=== PATIENT | female | born 1970 | race Caucasian/White ===

== ENCOUNTER 2017-03-26 14:20 | Emergency (ER) | payer SELFPAY ==
[2017-03-26 14:29] VITALS: O2SAT 96
--- NOTE | 2017-03-26 14:51 | CPEKG ---
Heart Rate: 91 RR Interval: 659 P-R Interval: 140 QRSD Interval: 82 QT Interval: 400 QTC Interval: 493 P [place]: 43 QRS [place]: 28 T Wave [place]: 34 EKG Severity - BORDERLINE ECG - EKG Impression: SINUS RHYTHM EKG Impression: BORDERLINE PROLONGED QT INTERVAL Electronically Signed By: Elise Smith 26-Mar-2017 15:22:39
--- NOTE | 2017-03-26 15:09 | EDPHY ---
H & P Stated Complaint: r side of face feels puffy and numb since 1230 Time Seen by Provider: 03/26/17 15:02 - Personal History LMP (Females 10-55): Over 28 Days Ago Current Tetanus/Diphtheria Vaccine: Unsure - Medical/Surgical History Hx Asthma: No Hx Chronic Respiratory Disease: No Hx Diabetes: No Hx Cardiac Disease: Yes Hx Renal Disease: No Hx Cirrhosis: No Hx Alcoholism: No Hx HIV/AIDS: No Hx Splenectomy or Spleen Trauma: No Other PMH: uterine ablation/states had MA - Social History Smoking Status: Current every day smoker Constitutional: Initial Vital Signs Temperature (C) 36.9 C 03/26/17 14:25 Heart Rate 107 H 03/26/17 14:25 Respiratory Rate 25 H 03/26/17 14:25 Blood Pressure 182/124 H 03/26/17 14:25 O2 Sat (%) 96 03/26/17 14:25 O2 Delivery Mode Room Air Allergies/Adverse Reactions: No Known Allergies Allergy (Unverified 03/26/17 14:24) Home Medications: Medication Instructions Recorded NK [No Known Home Meds] 03/26/17 Medical Decision Making ED Course/Re-evaluation: CHIEF COMPLAINT: Resolved shakiness, head pressure, difficulty hearing. HISTORY OF PRESENT ILLNESS: The patient is a 46 y/o female arriving with her friend complaining of a now-resolved episode of shakiness, head pressure, and difficulty hearing this afternoon. She initially noticed pressure on the right side of her head and muffled hearing, then developed general shakiness. She then blew her nose and "it popped and all went away." All her symptoms have resolved at this time and she feels completely normal. She denies any recent illness. She is otherwise healthy. REVIEW OF SYSTEMS: A 10 point review of systems was performed and is negative with the exception of the elements mentioned in the history of present illness. PHYSICAL EXAM: General Appearance: Alert, well hydrated, appropriate, and non-toxic appearing. Head: Atraumatic without scalp tenderness or obvious injury Eyes: Pupils equal, round, reactive to light and accommodation, EOMI, no trauma , no injection. Ears: Clear bilaterally, no perforation, normal landmarks Nose: Atraumatic, no rhinorrhea, clear. Throat: There is no erythema or exudates, no lesions, normal tonsils, mucus membranes moist. Neck: Supple, non-tender, no lymphadenopathy. Respiratory: No retractions, no distress, no wheezes, and no accessory muscle use. Lungs are clear to auscultation bilaterally. Cardiovascular: Regular rate and rhythm, no murmurs, rubs, or gallops. Good capillary refill all extremities. Gastrointestinal: Abdomen is soft, non-tender, non-distended, no masses, no rebound, no guarding, no peritoneal signs. Musculoskeletal: Normal active ROM of all extremities, atraumatic. Neurological: Alert, appropriate, and interactive. The patient has normal DTRs and non-focal cranial nerves, motor, sensory, and cerebellar exam. Skin: No rashes, good turgor, no nodules on palpation. PAST MEDICAL HISTORY: Denies PAST SURGICAL HISTORY: Denies SOCIAL HISTORY: Arrived from [place] 1 month ago. Friend at bedside. DIFFERENTIAL DIAGNOSIS: The differential diagnosis for the patient's headache included but was not limited to subarachnoid hemorrhage, migraine headache, tension headache and infectious causes such as meningitis, pharyngitis and sinusitis. MEDICAL DECISION MAKING: This is a normally healthy 46 y/o female presenting for evaluation after a resolved right-sided headache with associated muffled hearing. Her symptoms completely resolved after she blew her nose. Her neuro exam is completely normal. Her presentation is consisted with a blocked auditory tube that she cleared when she blew her nose. We discussed risks and benefits of brain imaging and mutually decided she does not warrant further work up or imaging at this time as her symptoms improved 100% after blowing her nose. She is comfortable being discharged home. I've recommended follow up with ENT if symptoms recur and given strict return precautions should she experience any neuro deficits or severe headache. She agrees with plan. Departure - Departure Disposition: Home, Routine, Self-Care Clinical Impression: resolved Blocked eustachian tube Qualifiers: Laterality: right Qualified Code(s): H68.101 - Unspecified obstruction of Eustachian tube, right ear Condition: Good Instructions: General Headache (ED) Additional Instructions: Follow up with an ENT if you find symptoms recur frequently. You've been referred to Dr. Stone. Return to the ED for severe headache, weakness or numbness on one side of your body, or other worsening of condition. Referrals: Jania Stone MD [Medical Doctor] - As per Instructions Report Scribed for: Lele Mishra Report Scribed by: Ronit Stovall Date of Report: 03/26/17 Time of Report: 15:32
[2017-03-26 15:24] VITALS: BP 169/120; PULSE 78; RESP 14; TEMP 99
== END 2017-03-26 15:38 | disposition home or self-care (01) ==
DX: H68.101 Unspecified obstruction of Eustachian tube, right ear (principal); I25.2 Old myocardial infarction; F17.200 Nicotine dependence, unspecified, uncomplicated